=== PATIENT | male | born 1985 | race Caucasian/White ===

== ENCOUNTER 2021-01-09 09:03 | Outpatient (REF) | payer OTHER, SELFPAY ==
[2021-01-09 09:45] LABS: Estimated Average Glucose 100 mg/dL; Hemoglobin A1c % 5.1 %
[2021-01-09 10:02] LABS: Alanine Aminotransferase 14 U/L (0-40); Albumin Level 4.3 g/dL (3.5-5.0); Alkaline Phosphatase 53 U/L (39-117); Anion Gap 12 (12-20); Aspartate Amino Transferase 17 U/L (5-37); Bilirubin Total 0.5 mg/dL (0.0-1.0); Blood Urea Nitrogen 14 mg/dL (9-16); Calcium 9.4 mg/dL (8.4-10.2); Carbon Dioxide 26 mmol/L (22-29); Chloride 106 mmol/L (96-108); Cholesterol 169 mg/dL; Estimated Glomerular Filt Rate > 60; Glucose Fasting 82 mg/dL (60-99); HDL Cholesterol 48 mg/dL; LDL Cholesterol Calculated 110 mg/dl; Potassium 4.3 mmol/L (3.3-5.1); Sodium 140 mmol/L (135-145); Total Protein 6.9 g/dL (6.5-8.0); Triglycerides 58 mg/dL
[2021-01-09 10:23] LABS: TSH reflex Free T4 1.44 uIU/mL (0.32-4.0)
== END 2021-01-09 09:04 | disposition home or self-care (01) ==
LOC: HO.LAB 09:03
PROVIDERS: PCP Physician Assistant; Visit Provider Physician Assistant
DX: G40.909 Epilepsy, unspecified, not intractable, without status epilepticus (principal); Z13.29 Encounter for screening for other suspected endocrine disorder; Z13.220 Encounter for screening for lipoid disorders; Z13.1 Encounter for screening for diabetes mellitus
CPT/HCPCS: 36415; 80053; 80061; 80164; 83036; 84443

== ENCOUNTER 2022-12-30 15:30 | Outpatient (AMB) | payer OTHER, SELFPAY ==
--- NOTE | 2022-12-30 15:45 | MHC.PC.OV ---
Vital Signs 12/30/22 15:45 Height 5 ft 4 in BP not taken reason Medical Reason Comment Unable to obtain vital signs. The patient was unstable. 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 Patient has a past medical history significant for spastic cerebral palsy, epilepsy and major depressive disorder. Patient is mostly wheelchair dependent. Concern--> reports having COVID twice over the last year. He reports he had a bad infection. He intermittently gets coughing fits likely secondary to aspiration as he has trouble handling his oral secretions due to his CP.. Also He reports he has been feeling very tight muscles in his hamstrings and back. He is interested in starting physical therapy. .. Seizure disorder: Has not had any recent seizures. Continues on divalproex. He would like to establish care with a neurologist for his seizure disorder and cerebral palsy. [facility] Family History Father Lymphoma Social History Alcohol intake: current Alcohol intake frequency: a few times a week Patient Tobacco Use Status: Never used Tobacco Tobacco use type: Cigarette e-Cigarette/Vaping Use: Never Used Second Hand Smoke Exposure: No Current occupational status: disabled Cognitive needs: Yes Hearing needs: No Vision needs: No Questionnaire PHQ-9 Over the last 2 weeks, how often have you been bothered by any of the following problems? 1. Little interest or pleasure in doing things: not at all 2. Feeling down, depressed, or hopeless: not at all 3. Trouble falling or staying asleep, or sleeping too much: not at all 4. Feeling tired or having little energy: not at all 5. Poor appetite or overeating: not at all 6. Feeling bad about yourself - or that you are a failure or have let yourself or your family down: not at all 7. Trouble concentrating on things, such as reading the newspaper or watching television: not at all 8. Moving or speaking so slowly that other people could have noticed. Or the opposite - being so fidgety or restless that you have been moving around a lot more than usual: not at all 9. Thoughts that you would be better off or of hurting yourself in some way: not at all Total score: 0 Depression Screening Interpretation: Positive Depression Screening Done: Yes 34840 - PHQ-9 Billing: Yes Source: Developed by Drs. Tao Cardoza, Elena Gallagher, Jason Eastman and colleagues, with an educational benito from [employer]. Thrive Questionnaire Date Thrive assessed: 12/30/22 I am a: Patient What is your living situation today?: I have a steady place to live Within the past 12 months, did the food you bought not last and you didn't have the money to get more?: Never true Within the past 12 months, did you worry whether your food would run out before you got money to buy more?: Never true Do you have trouble paying for medicines?: No Do you have trouble getting transportation to medical appointments?: No Do you have trouble paying your heating and electricity bill?: No Do you have trouble taking care of your child, family member or friend?: No Do you have trouble with day-to-day activities such as bathing, preparing meals, shopping, managing finances, etc.?: No Are you currently unemployed and looking for a job?: No Are you interested in more education?: No Please select the resources that you would like help with: None Currently or been in a relationship where the following occur: no concerns reported AUDIT C Alcohol Use Questionnaire (AUDIT-C) 1. How often do you have a drink containing alcohol?: Never 3. How often do you have six or more drinks on one occasion?: Never Total Score: 0 THOM-7 AMB Questionnaire THOM-7 Date THOM - 7 assessed: 12/30/22 Feeling nervous, anxious, or on edge: 0 = Not at all Not being able to stop or control worryin = Not at all Worrying too much about different things: 0 = Not at all Trouble relaxin = Not at all Being so restless that it is hard to sit still: 0 = Not at all Becoming easily annoyed or irritable: 0 = Not at all Feeling afraid as if something awful might happen: 0 = Not at all Total THOM-7 score (0-4 normal; 5-9 mild; 10-14 moderate; 15-21 severe): 0 Source: Developed by Drs. Tao Cardoza, Elena Gallagher, Jason Eastman and colleagues, with an educational benito from [employer]. THOM-7 Assessment Billing THOM-7 Assessment Tool: THOM-7 Assessment 65197 Review of Systems Const Denies headache(s) Eyes Denies loss of vision ENT Denies vertigo, Denies dizziness, Denies headache(s) and Denies sore throat Card Denies chest pain, Denies leg edema and Denies lightheadedness Resp Denies cough, Denies hemoptysis and Denies wheezing GI Denies abdominal pain, Denies melena, Denies constipation, Denies diarrhea and Denies vomiting Denies dysuria, Denies urinary frequency and Denies urinary urgency Musc Denies arthralgias, Denies joint swelling, Denies numbness and Denies tingling Neuro Denies Abnormal speech present, Denies behavioral changes, Denies vertigo, Denies dizziness, Denies headache(s), Denies loss of vision, Denies memory loss, Denies numbness and Denies tingling Psych Denies anxiety, Denies behavioral changes, Denies depression, Denies memory loss and Denies panic attacks Tyshawn/Lymph Denies easy bleeding and Denies easy bruising Aller/Immun Denies wheezing Physical exam (Primary Care) Tobacco/Smoking Status: Tobacco use Status Tobacco use date assessed 01/05/22 12/30/22 15:50 Patient Tobacco Use Status Never used Tobacco 12/30/22 15:50 Tobacco use type Cigarette 12/30/22 15:50 e-Cigarette/Vaping Use Never Used 12/30/22 15:50 PHQ-9: PHQ-9 Score PHQ-9: Total score 0 12/30/22 15:56 Depression Screening Interpretation: Positive Thrive Assessment: Date of Thrive Assessment Date Thrive assessed 12/30/22 12/30/22 15:56 Currently or been in a relationship where the following occur: no concerns reported Const Other: Comfortably in his electric wheelchair. General: healthy appearing, no acute distress, alert and awake Nutritional Appearance: well nourished Orientation/consciousness: oriented to person, oriented to place and oriented to time HENMT Ears: TM's normal bilaterally General nose exam: Normal nasal mucous membranes and turbinates present Eyes Conjunctivae: conjunctivae normal Sclerae: sclerae normal Pupils: Equal, round and reactive pupils present Neck Neck: Yes no lymphadenopathy and Yes no JVD Thyroid: Thyroid normal Carotids: no bruits Resp Effort & Inspection: normal respiratory effort and not tachypneic Auscultation: no crackles, no rales, no rhonchi and no wheezes Cardio Rate: regular rate Rhythm: regular rhythm Heart sounds: no murmurs and normal S1 and S2 GI Palpation (GI): Soft to palpation, nontender, no hepatomegaly and no splenomegaly Auscultation: normal bowel sounds Skin General skin exam: no rashes or lesions noted and dry skin Neuro Other: Involuntary muscle spasticity noted. General: oriented to person, oriented to place and oriented to time Cranial nerves: Yes Equal, round and reactive pupils present Speech: No Abnormal speech present Gait exam (Neuro): Normal gait present Motor exam (neuro): no tremor noted Extrem Right upper extremity: full ROM Left upper extremity: full ROM Right lower extremity: full ROM; no edema Left lower extremity: full ROM; no edema Psych Mental Status: mental status grossly normal Speech and movement: Normal speech and movement present Affect: normal affect Attitude: cooperative Thought process: Normal thought process present Assessment and Plan Assessment & Plan (1) Cerebral palsy: Code(s): G80.9 - Cerebral palsy, unspecified Qualifiers: Cerebral palsy type: spastic diplegic Qualified Code(s): G80.1 - Spastic diplegic cerebral palsy (2) Lower extremity weakness: Code(s): R29.898 - Other symptoms and signs involving the musculoskeletal system Qualifiers: Laterality: bilateral Qualified Code(s): R29.898 - Other symptoms and signs involving the musculoskeletal system Plan: Reports having some lower extremity weakness. He does stand and pivot and short distance walking at home with assistance. He would likely from some physical therapy to help strengthen his lower extremities. (3) Epilepsia: Code(s): G40.909 - Epilepsy, unspecified, not intractable, without status epilepticus Qualifiers: Epilepsy type: unspecified Intractability: not intractable Status epilepticus: without status epilepticus Qualified Code(s): G40.909 - Epilepsy, unspecified, not intractable, without status epilepticus Plan: Continues on divalproex with good effect on reducing his seizure frequency. He does not report any recent seizure activity. He would like to establish care with another neurologist locally. (4) Cough: Code(s): R05.9 - Cough, unspecified Qualifiers: Cough type: subacute Qualified Code(s): R05.2 - Subacute cough Plan: Reports intermittently having a cough ever since having COVID infection. Will order chest x-ray to be done at patient's earliest convenience to evaluate for any pulmonary infiltrate Orders: Orders Comprehensive [place]. Panel Fast 12/30/22 Z13.1 - Encounter for screening for diabetes mellitus XR chest 2V 12/30/22 R05.2 - Subacute cough Complete Blood Count no Diff 12/30/22 Z13.1 - Encounter for screening for diabetes mellitus PT Evaluation and Treatment Today R29.898 - Other symptoms and signs involving the musculoskeletal system Referrals Neurology Referral G40.909 - Epilepsy, unspecified, not intractable, without status epilepticus, G80.9 - Cerebral palsy, unspecified Medications: New baclofen 10 mg PO DAILY PRN 30 tabs 0RF muscle spasm 30 days G80.1 - Spastic diplegic cerebral palsy Coding Level of Care Code Est Pt Level 4 (58903) Diagnoses Spastic diplegic cerebral palsy G80.1 Cerebral palsy type: spastic diplegic Weakness of both lower extremities R29.898 Laterality: bilateral Nonintractable epilepsy without status epilepticus, unspecified epilepsy type G40.909 Epilepsy type: unspecified Intractability: not intractable Status epilepticus: without status epilepticus Subacute cough R05.2 Cough type: subacute Additional Codes THOM-7 Assessment Billing - THOM-7 Assessment Tool: THOM-7 Assessment 12898 ([id number])
== END 2022-12-30 16:29 | disposition home or self-care (01) ==
PROVIDERS: PCP Physician Assistant; Visit Provider Physician Assistant
DX: G80.1 Spastic diplegic cerebral palsy (principal); R29.898 Other symptoms and signs involving the musculoskeletal system; G40.909 Epilepsy, unspecified, not intractable, without status epilepticus; R05.2 Subacute cough
CPT/HCPCS: 99214

== ENCOUNTER 2023-05-06 12:14 | Outpatient (REF) | payer OTHER, SELFPAY ==
--- NOTE | ~2023-05-06 | XR_ITS ---
EXAMINATION: XR chest 2V CLINICAL INFORMATION: Reason for Exam R05.2 - Subacute cough COMPARISON: None TECHNIQUE: 2 views of the chest FINDINGS: Low lung volumes. Left basilar hazy opacity. No pneumothorax or pleural effusion. Borderline enlarged cardiac silhouette. XR/XR chest 2V Impression: Left basilar hazy opacity may reflect atelectasis, aspiration, or infection. Borderline enlarged cardiac silhouette.
== END 2023-05-06 12:15 | disposition home or self-care (01) ==
LOC: HO.XRAY 12:14
PROVIDERS: PCP Physician Assistant; Visit Provider Physician Assistant
DX: R05.2 Subacute cough (principal)
CPT/HCPCS: 71046

== ENCOUNTER 2023-05-20 13:54 | Outpatient (AMB) | payer OTHER, SELFPAY ==
--- NOTE | 2023-05-20 14:13 | MHC.PC.OV ---
Intake Visit Reasons: EP pain sternum, just finished medications Allergies No Known Allergies Allergy (Verified 01/03/23 07:28) Tobacco use date assessed: 01/05/22 PFSH Family History Father Lymphoma Social History Alcohol intake: current Alcohol intake frequency: a few times a week Patient Tobacco Use Status: Never used Tobacco Tobacco use type: Cigarette e-Cigarette/Vaping Use: Never Used Second Hand Smoke Exposure: No Current occupational status: disabled Cognitive needs: Yes Hearing needs: No Vision needs: No Questionnaire Thrive Questionnaire Date Thrive assessed: 12/30/22 THOM-7 AMB Questionnaire THOM-7 Date THOM - 7 assessed: 12/30/22 Source: Developed by Drs. Tao Cardoza, Elena Gallagher, Jason Eastman and colleagues, with an educational benito from [email or web address]. Physical exam (Primary Care) Tobacco/Smoking Status: Tobacco use Status Tobacco use date assessed 01/05/22 12/30/22 15:50 Patient Tobacco Use Status Never used Tobacco 12/30/22 15:50 Tobacco use type Cigarette 12/30/22 15:50 e-Cigarette/Vaping Use Never Used 12/30/22 15:50 Thrive Assessment: Date of Thrive Assessment Date Thrive assessed 12/30/22 12/30/22 15:56 Coding
--- NOTE | 2023-05-20 14:16 | AM.OFFWIN_ITS ---
Intake Vital Signs 05/20/23 14:17 BMI Reason not done Patient refused/unable BP 118/72 Blood Pressure Location Lt brachial Position Sitting Pulse 78 Pulse Source Pulse Oximeter Pulse Oximetry (%) 98 Oxygen Delivery Method Room Air Intake Visit Reasons: EP pain sternum, just finished medications Intake Note: pt is here for pain in sternum and finshed meds but didnt get any better Patient Tobacco Use Status: Never used Tobacco Allergies No Known Allergies Allergy (Verified 05/20/23 14:16) Do you need a note to return to daycare/school/sports/work: Yes HPI HPI Comments History of Present Illness Details 37 y/o female patient who presents to [facility] solo in clinic with c/o chest tightness and cough. Pt just completed a course of Zpack. Pt reports not feeling any better. PFSH Family History Father Lymphoma Social History Alcohol intake: current Alcohol intake frequency: a few times a week Patient Tobacco Use Status: Never used Tobacco Tobacco use type: Cigarette e-Cigarette/Vaping Use: Never Used Second Hand Smoke Exposure: No Current occupational status: disabled Cognitive needs: Yes Hearing needs: No Vision needs: No Review of Systems Const All systems reviewed & are unremarkable except as noted in HPI and below Physical Exam Vital Signs: Last Vital Signs Pulse 78 05/20/23 14:17 BP 118/72 05/20/23 14:17 Pulse Ox 98 05/20/23 14:17 Oxygen Delivery Method Room Air 05/20/23 14:17 Const General: comfortable and no acute distress Orientation/consciousness: patient oriented x3 Limitations: behavioral limitations, physical limitations and wheelchair HEENT Head: Yes normocephalic Ears: external ears normal and TM's normal bilaterally General nose exam: Abnormal mucous membranes and turbinates present boggy and erythematous Face and sinus: Yes sinuses nontender Resp Effort & Inspection: normal respiratory effort Auscultation: clear to auscultation bilaterally, no crackles, no rales, no rhonchi and no wheezes Cardio Rate: regular rate Rhythm: regular rhythm Neuro General: patient oriented x3 Assessment & Plan Assessment & Plan (1) Cough: Code(s): R05.9 - Cough, unspecified Qualifiers: Cough type: subacute Qualified Code(s): R05.2 - Subacute cough Plan: - Rest - Hydrate with warm fluids. - Acetaminophen for pain relief. Orders: Orders SARS-CoV2/FLU/RSV Today R05.9 - Cough, unspecified, R09.89 - Other specified symptoms and signs involving the circulatory and respiratory systems Medications: New pseudoephedrine HCl ER (Sudafed 12 Hour) 120 mg PO Q12H PRN 30 tabs 0RF chest congestion R05.9 - Cough, unspecified benzonatate 100 mg PO TID 30 caps 0RF R05.9 - Cough, unspecified Coding Level of Care Code Est Pt Level 3 (02653) Diagnoses Subacute cough R05.2 Cough type: subacute Time Spent (min) 15
[2023-05-20 14:17] VITALS: BP 118/72; PULSE 78; O2SAT 98
== END 2023-05-20 15:13 | disposition home or self-care (01) ==
PROVIDERS: PCP Physician Assistant; Visit Provider Nurse Practitioner Family
DX: R05.2 Subacute cough (principal)
CPT/HCPCS: 99213

== ENCOUNTER 2023-05-20 14:34 | Outpatient (REF) | payer OTHER, SELFPAY ==
[2023-05-20 19:46] LABS: Influenza A PCR NEGATIVE (Negative); Influenza B PCR NEGATIVE (Negative); Resp Syncy Virus RNA Qual PCR NEGATIVE (Negative); SARS COV2 PCR INHOUSE NEGATIVE (Negative)
== END 2023-05-20 14:35 | disposition home or self-care (01) ==
LOC: HO.LAB 14:34
PROVIDERS: Visit Provider Nurse Practitioner Family
DX: R09.89 Other specified symptoms and signs involving the circulatory and respiratory systems (principal); R05.9 Cough, unspecified; Z11.52 Encounter for screening for COVID-19; Z20.828 Contact with and (suspected) exposure to other viral communicable diseases
CPT/HCPCS: 0241U